=== PATIENT | male | born 1990 | race Two or more races ===

== ENCOUNTER 2021-01-17 17:57 | Emergency (ER) | payer OTHER, SELFPAY ==
[~2021-01-17] VITALS: Ht 170.2 cm; Wt 79.0 kg
[2021-01-17 20:41] VITALS: BP 134/70
--- NOTE | 2021-01-17 20:55 | NUR ---
PATIENT PRESENTS WITH LEFT SIDED BACK PAIN AFTER BENDING OVER IN THE SHOWER. DENIES RECENT FALLS. PATIENT STATES HE FEELS WEAK. NO HX OF BACK ISSUES. +RIGHT SIDED BACK PAIN SHOOTING DOWN RIGHT LEG. CONTINENT OF BOWEL/ BLADDER. VSS. BED IN LOW POSITION. FAMILY AT BEDSIDE. AWAITING ERP. WILL CONTINUE TO MONITOR.
[2021-01-17] MEDS ORDERED: DIAZEPAM 5 MG/ML, 2ML ONE (21:22)
[2021-01-17] MEDS ORDERED: LIDODERM 5% PATCH TD ONE ×2 (21:22→21:30)
[2021-01-17] MEDS ORDERED: KETOROLAC 30 MG/1 ML ONE (21:22)
[2021-01-17] MEDS ORDERED: ACETAMINOPHEN 500 MG TABLET ONE (21:22)
[2021-01-17] MEDS ORDERED: DIAZEPAM 5 MG/ML, 2ML IM ONE (21:30)
[2021-01-17] MEDS ORDERED: KETOROLAC 30 MG/1 ML IM ONE (21:30)
[2021-01-17] MEDS ORDERED: ACETAMINOPHEN 500 MG TABLET PO ONE (21:30)
[2021-01-17 21:46] LABS: MICROSCOPIC AUTO
--- NOTE | 2021-01-17 22:21 | NUR ---
PATIENT UNABLE TO AMBULATE INDEPENDETLY DUE TO PAIN/ DIZZINESS. MD AWARE.
--- NOTE | 2021-01-17 22:59 | NUR ---
MRI FORM COMPLETED AT BEDSIDE WITH PATIENT. FAXED TO MRI.
--- NOTE | 2021-01-17 23:04 | NUR ---
PATIENT TO MRI AT THIS TIME. MRI FORM COMPLETED AND GIVEN TO REFINERY OPERATOR.
--- NOTE | 2021-01-17 23:32 | NUR ---
PATIENT RETURN FROM MRI.
--- NOTE | 2021-01-18 00:28 | NUR ---
VERBAL ORDER FROM MD DORSEY FOR ANOTHER LIDO PATCH BC IT HAD TO BE REMOVED FOR MRI.
[2021-01-18] MEDS ORDERED: LIDODERM 5% PATCH TD ONE (00:30)
--- NOTE | 2021-01-18 00:36 | NUR ---
Patient/Caregiver given discharge instructions and they have confirmed that they understand the instructions. Patient ambulatory with steady gait. NAD, all questions answered appropriately, denies additional needs at this time. No personal belongings left in room after discharge.
== END 2021-01-18 00:37 | disposition home or self-care (01) ==
LOC: ED 21:37
DX: S39.012A Strain of muscle, fascia and tendon of lower back, initial encounter (principal); M51.36 Other intervertebral disc degeneration, lumbar region; R94.31 Abnormal electrocardiogram [ECG] [EKG]; Z90.49 Acquired absence of other specified parts of digestive tract; X58.XXXA Exposure to other specified factors, initial encounter; Y93.89 Activity, other specified; Y92.89 Other specified places as the place of occurrence of the external cause; Y99.8 Other external cause status
CPT/HCPCS: 72148; 80047; 81001; 93005; 96372; 99285; J1885; J3360